=== PATIENT | female | born 1985 | race Caucasian/White ===

== ENCOUNTER 2020-09-08 15:10 | Outpatient (CLI) | payer BC, SELFPAY ==
[2020-09-08 16:15] LABS: Beta HCG Quantitative 241.13 mIU/ML
[2020-09-13 07:46] LABS: Progesterone 1.9 ng/mL (***)
== END 2020-09-08 15:11 | disposition home or self-care (01) ==
LOC: ANHLAB 15:16
PROVIDERS: Visit Provider Obstetrics & Gynecology
DX: O20.0 Threatened abortion (principal); Z3A.00 Weeks of gestation of pregnancy not specified
CPT/HCPCS: 36415; 84144; 84702

== ENCOUNTER 2020-09-10 15:56 | Outpatient (CLI) | payer BC, SELFPAY ==
[2020-09-10 16:54] LABS: Beta HCG Quantitative 32.85 mIU/ML
[2020-09-12 07:32] LABS: Progesterone 0.7 ng/mL (***)
== END 2020-09-10 15:57 | disposition home or self-care (01) ==
LOC: ANHLAB 16:01
PROVIDERS: Visit Provider Obstetrics & Gynecology
DX: O20.0 Threatened abortion (principal); Z3A.00 Weeks of gestation of pregnancy not specified
CPT/HCPCS: 36415; 84144; 84702

== ENCOUNTER → 2020-09-29 09:49 | Outpatient (CLI) | payer BC, SELFPAY ==
--- NOTE | ~2020-09-29 | MMUS_ITS ---
EXAMINATION: MM diagnostic lisa BI w gosia, US breast BI complete HISTORY: Bilateral breast pain TECHNIQUE: Additional 3-D tomosynthesis images of the breasts were performed and synthetic 2-D images were generated. CAD analysis was submitted and interpreted. High resolution complete bilateral breas t ultrasound was performed. COMPARISON: None BREAST PARENCHYMAL COMPOSITION: The breasts are heterogenously dense, which may obscure small masses. FINDINGS: MAMMOGRAPHIC FINDINGS: There are no suspicious masses, calcifications or architectural distortion in either breast to sugges t malignancy. ULTRASOUND: Complete right breast ultrasound: At 4:00, 5 cm from the nipple, there is a cluster of microcysts esperanza suring up to 1 cm in aggregate. At 9:00, 4 cm from the nipple, there is an 8 mm cyst. At 10:00, 5 cm from the nipple, there is a 5 mm cyst. At 11:00, 6 cm from the nipple, there is an oval hypoechoic ma ss with parallel orientation, no significant posterior features or internal vascularity measuring 10 x 9 x 5 mm. At 11:00, 7 cm from the nipple there is a complicated cyst measuring 5 mm. The left breast ultrasound: At 6:00, 2 cm from the nipple, there is an oval hypoechoic mass with para llel orientation, circumscribed margins, no significant posterior features or internal vascularity. T his mass measures 12 x 12 x 7 mm. No at 11:00, 1 cm from the nipple, there is an oval hypoechoic mass with parallel orientation, no significant posterior features or internal vascularity measuring 10 x 8 x 4 mm. IMPRESSION: 1. No evidence for malignancy in the right breast. Benign findings. 2. Probable benign left breast masses. Six-month follow-up left breast ultrasound recommended. BI-RADS category 3, probably benign findings. Reviewed, dictated and finalized at location A. IMPRESSION: 1. No evidence for malignancy in the right breast. Benign findings. 2. Probable benign left breast masses. Six-month follow-up left breast ultrasou nd recommended. BI-RADS category 3, probably benign findings.
== END ==
PROVIDERS: Visit Provider Obstetrics & Gynecology
DX: N64.4 Mastodynia (principal); R92.8 Other abnormal and inconclusive findings on diagnostic imaging of breast
CPT/HCPCS: 76641; 77062; 77066; G0279

== ENCOUNTER 2021-01-26 08:36 | Outpatient (CLI) | payer BC, SELFPAY ==
[2021-01-26 09:37] LABS: Beta HCG Quantitative 99.19 mIU/ML
[2021-01-30 13:53] LABS: Progesterone 17.6 ng/mL (***)
== END 2021-01-26 08:37 | disposition home or self-care (01) ==
PROVIDERS: Visit Provider Obstetrics & Gynecology
DX: Z34.90 Encounter for supervision of normal pregnancy, unspecified, unspecified trimester (principal); Z3A.00 Weeks of gestation of pregnancy not specified
CPT/HCPCS: 36415; 84144; 84702

== ENCOUNTER 2021-02-02 07:26 | Outpatient (CLI) | payer BC, SELFPAY | END 2021-02-02 07:27 | disposition home or self-care (01) | LOC: ANHLAB 07:31 | PROVIDERS: Visit Provider Obstetrics & Gynecology | DX: Z34.90 Encounter for supervision of normal pregnancy, unspecified, unspecified trimester (principal) | CPT/HCPCS: 36415; 84702 ==

== ENCOUNTER 2021-02-04 07:55 | Outpatient (CLI) | payer BC, SELFPAY | END 2021-02-04 07:56 | disposition home or self-care (01) | PROVIDERS: Visit Provider Obstetrics & Gynecology | DX: Z34.91 Encounter for supervision of normal pregnancy, unspecified, first trimester (principal); Z3A.00 Weeks of gestation of pregnancy not specified | CPT/HCPCS: 36415; 84702 ==

== ENCOUNTER 2021-03-10 07:30 | Outpatient (RCR) | payer BC, SELFPAY ==
[2021-02-10 08:58] LABS: Beta HCG Quantitative 187.75 mIU/ML
[2021-03-10 09:08] LABS: Beta HCG Quantitative 11.48 mIU/ML
== END 2021-05-11 23:59 | disposition home or self-care (01) ==
LOC: ANHLAB 07:30
PROVIDERS: Visit Provider Obstetrics & Gynecology
DX: O03.9 Complete or unspecified spontaneous abortion without complication (principal)
CPT/HCPCS: 36415; 84702